=== PATIENT | female | born 1990 | race Two or more races ===

== ENCOUNTER 2020-09-13 06:05 | Observation (INO) | payer SELFPAY ==
[~2020-09-13] VITALS: Ht 152.4 cm; Wt 94.1 kg
[2020-09-13] MEDS ORDERED: IV RINGERS,LACTATED 1000ML 1,000 ML IV SCH (06:30)
[2020-09-13] MEDS ORDERED: ACETAMINOPHEN 325 MG TABLET. PO PRN (06:30)
[2020-09-13 07:16] LABS: BILIRUBIN,URINE NEGATIVE (NEG); CLARITY,URINE CLEAR; COLOR,URINE YELLOW; NITRITE,URINE NEGATIVE (NEG); PH,URINE 6.5 (<5.0-8.0); PROTEIN,URINE 30 mg/dL (NEG-TRACE); UROBILINOGEN,URINE 0.2 mg/dL (0.2 mg/dL)
[2020-09-13 07:21] LABS: BACTERIA,URINE MODERATE /HPF (0-FEW)
[2020-09-16] MEDS ORDERED: IBUP-1027 PO (08:53)
[2020-09-16] MEDS ORDERED: OXYC1TAB15 PO (08:53)
== END 2020-09-13 12:24 | disposition home or self-care (01) ==
LOC: 3 SO LND 06:05
PROVIDERS: ADMIT Obstetrics & Gynecology; ATTEND Obstetrics & Gynecology
DX: O62.9 Abnormality of forces of labor, unspecified (principal); O26.853 Spotting complicating pregnancy, third trimester; Z88.0 Allergy status to penicillin; Z3A.39 39 weeks gestation of pregnancy
CPT/HCPCS: 59025; 81001; 87086; G0378; G0379